=== PATIENT | male | born 1955 | race Caucasian/White ===

== ENCOUNTER 2017-10-10 16:23 | Emergency (ER) | payer OTHER ==
[~2017-10-10] VITALS: Ht 170.2 cm; Wt 96.7 kg
[2017-10-10 19:34] VITALS: BP 132/86
== END 2017-10-10 19:36 | disposition home or self-care (01) ==
LOC: EME 16:23
DX: R25.1 Tremor, unspecified (principal); F17.200 Nicotine dependence, unspecified, uncomplicated
CPT/HCPCS: 70450; 99281; 99284